=== PATIENT | male | born 1980 | race African-American/Black ===

== ENCOUNTER 2017-06-10 18:57 | Emergency (ER) | payer BC ==
[~2017-06-10] VITALS: Ht 188 cm; Wt 79.8 kg
[~2017-06-10 18:57] MED LIST: AMOXICILLIN500 M1 PO; MOTRIN600 MG PO; NAPROXEN500 M1 PO; NOHOMEMEDS; PENICILLIN V P500 MG PO; TRAMADOL HCL50 MG PO; TYLENOL/CODE1 TABLET PO; VICODIN,LORT1 TABLET PO
[2017-06-10] MEDS ORDERED: MOTRIN600 MG PO (20:07)
[2017-06-10 20:43] VITALS: BP 147/72
== END 2017-06-10 20:44 | disposition home or self-care (01) ==
LOC: EME 18:57
DX: S39.012A Strain of muscle, fascia and tendon of lower back, initial encounter (principal); X58.XXXD Exposure to other specified factors, subsequent encounter; Y99.0 Civilian activity done for income or pay
CPT/HCPCS: 99281; 99283